=== PATIENT | female | born 1975 | race Caucasian/White ===

== ENCOUNTER 2016-10-28 21:47 | Emergency (ER) | payer MEDICAID ==
[2016-10-28] MEDS ORDERED: Albuterol/Ipratropium 3.0-0.5 MG/3 ML Neb Soln NEB ONE (22:03)
[2016-10-28] MEDS ORDERED: Sodium Chloride 0.9% 1,000 ML IV ONE (22:04)
[2016-10-28] MEDS ORDERED: guaiFENesin 600 MG Tab.ER PO ONE (22:05)
[2016-10-28] MEDS ORDERED: Ketorolac 30 MG/ML SDV IVPUSH ONE (22:05)
--- NOTE | 2016-10-28 22:16 | EDM.PDOC ---
ED HISTORY OF PRESENT ILLNESS - General Chief Complaint: Respiratory Problem Stated Complaint: CHEST PAIN/CONGESTION Time Seen by Provider: 10/28/16 22:00 Source of Information: Reports: Patient History Limitations: Reports: No limitations - History of Present Illness INITIAL COMMENTS - FREE TEXT/NARRATIVE: History of present illness: [40-year-old female comes in complaining of congestion, sore throat, fevers, and general aches and pains in her axilla and inguinal region.] Review of systems: As per history of present illness and below otherwise all systems reviewed and negative. Past medical history: As per history of present illness and as reviewed below otherwise noncontributory. Surgical history: As per history of present illness and as reviewed below otherwise noncontributory. Social history: No reported history of drug or alcohol abuse. Family history: As per history of present illness and as reviewed below otherwise noncontributory. Physical exam: HEENT: Atraumatic, normocephalic, pupils reactive, negative for conjunctival pallor or scleral icterus, mucous membranes moist with oral pharyngeal erythema with white patchy exudates tonsillar pillars noted to be cryptic and 3+, neck supple but with diffuse tenderness with mild clavicular lymphadenopathy noted, trachea midline. Lungs: Clear to auscultation but diminished throughout, chest nontender. Heart: S1S2, regular, negative for clicks, rubs, or JVD. Abdomen: Soft, nondistended, nontender. Negative for masses or hepatosplenomegaly. Negative for costovertebral tenderness. Pelvis: Stable nontender. Genitourinary: Deferred. Rectal: Deferred. Extremities: Atraumatic, negative for cords or calf pain. Neurovascular unremarkable. Neuro: Awake, alert, oriented. Cranial nerves II through XII unremarkable. Cerebellum unremarkable. Motor and sensory unremarkable throughout. Exam nonfocal. Diagnostics: [] Therapeutics: [IV fluid, Mucinex, Toradol] Impression: [Strep pharyngitis, viral] Plan: [] Definitive disposition and diagnosis as appropriate pending reevaluation and review of above. - Related Data Allergies/ADRs: Allergies Allergy/AdvReac Type Severity Reaction Status Date / Time sulfamethoxazole Allergy Hives Verified 10/28/16 21:56 [From Bactrim] trimethoprim [From Bactrim] Allergy Hives Verified 10/28/16 21:56 Home Meds: Home Meds ClonazePAM [KlonoPIN] 0.5 mg PO ASDIRECTED PRN 08/15/16 [History] Past Medical History - Past Health History Medical/Surgical History: Denies Medical/Surgical History Other HEENT History: wears contacts/glasses, has bottom partial Gastrointestinal History: Reports: Other (see below) Other Gastrointestinal History: occasional heartburn Genitourinary History: Reports: None [employer] IN[employer]CTOR History: Reports: Psychiatric History: Reports: Anxiety Endocrine/Metabolic History: Reports: Obesity/BMI 30+ - Infectious Disease History Infectious Disease History: Reports: Mumps - Past Surgical History Head Surgeries/Procedures: Reports: None HEENT Surgical History: Reports: Oral surgery Female Surgical History: Reports: section, Tubal ligation Social & Family History - Family History Family Medical History: Noncontributory - Tobacco Use Smoking Status *Q: Never Smoker - Recreational Drug Use Recreational Drug Use: No ED ROS GENERAL - Review of Systems Review Of Systems: See Below (See history of present illness) ED EXAM, GENERAL - Physical Exam Exam: See Below (See history of present illness) Course - Vital Signs Last Recorded V/S: Last Vital Signs Temp 36.9 C 10/28/16 21:53 Pulse 106 H 10/28/16 21:53 Resp 18 10/28/16 21:53 BP 145/86 H 10/28/16 21:53 Pulse Ox 96 10/28/16 21:53 - Orders/Labs/Meds Orders: Active Orders 24 hr Category Date Time Status RT Aerosol Therapy [RC] ASDIRECTED Care 10/28/16 22:04 Ordered Sodium Chloride 0.9% [Normal Saline] 1,000 ml Med 10/28/16 22:04 Ordered IV STAT Medication Orders Sodium Chloride (Normal Saline) 1,000 mls @ 999 mls/hr IV STAT ONE Stop: 10/28/16 23:04 Meds: Medications Generic Name Dose Route Start Last Admin Trade Name Freq PRN Reason Stop Dose Admin Sodium Chloride 1,000 mls @ 999 mls/hr 10/28/16 22:04 Normal Saline IV 10/28/16 23:04 STAT ONE Discontinued Medications Generic Name Dose Route Start Last Admin Trade Name Freq PRN Reason Stop Dose Admin Albuterol/Ipratropium 3 ml 10/28/16 22:03 Duoneb 3.0-0.5 Mg/3 Ml NEB 10/28/16 22:04 ONETIME ONE Guaifenesin 1,200 mg 10/28/16 22:05 Mucinex PO 10/28/16 22:06 ONETIME ONE Ketorolac Tromethamine 30 mg 10/28/16 22:05 Toradol IVPUSH 10/28/16 22:06 ONETIME ONE Departure - Departure Time of Disposition: 22:15 Disposition: Home, Self-Care 01 Condition: good Clinical Impression: Pharyngitis, Cough, Sinusitis Instructions: Upper Respiratory Infection, Adult, [id number] Forms: ED Department Discharge Additional Instructions: The following information is given to patients seen in the emergency department who are being discharged to home. This information is to outline your options for follow-up care. We provide all patients seen in our emergency department with a follow-up referral. The need for follow-up, as well as the timing and circumstances, are variable depending upon the specifics of your emergency department visit. If you don't have a primary care physician on staff, we will provide you with a referral. We always advise you to contact your personal physician following an emergency department visit to inform them of the circumstance of the visit and for follow-up with them and/or the need for any referrals to a consulting specialist. The emergency department will also refer you to a specialist when appropriate. This referral assures that you have the opportunity for follow-up care with a specialist. All of these measure are taken in an effort to provide you with optimal care, which includes your follow-up. Under all circumstances we always encourage you to contact your private physician who remains a resource for coordinating your care. When calling for follow-up care, please make the office aware that this follow-up is from your recent emergency room visit. If for any reason you are refused follow-up, please contact the [facility] Emergency Department at and asked to speak to the emergency department charge nurse. Take medication as directed Followup with primary care provider one to 2 days Return to ED as needed as discussed - My Orders Last 24 Hours: My Active Orders 10/28/16 22:04 RT Aerosol Therapy [RC] ASDIRECTED Sodium Chloride 0.9% [Normal Saline] 1,000 ml IV STAT - Assessment/Plan Last 24 Hours: My Active Orders 10/28/16 22:04 RT Aerosol Therapy [RC] ASDIRECTED Sodium Chloride 0.9% [Normal Saline] 1,000 ml IV STAT
[2016-10-29 03:09] VITALS: BP 128/82
== END 2016-10-28 23:21 | disposition home or self-care (01) ==
LOC: MW.ED 21:47
DX: J02.0 Streptococcal pharyngitis (principal); J32.9 Chronic sinusitis, unspecified; F41.9 Anxiety disorder, unspecified; E66.9 Obesity, unspecified; Z98.890 Other specified postprocedural states; Z98.51 Tubal ligation status; Z88.2 Allergy status to sulfonamides; Z88.1 Allergy status to other antibiotic agents
CPT/HCPCS: 99283; A9270

== ENCOUNTER 2017-02-04 06:22 | Day surgery (SDC) | payer MEDICAID ==
[2017-02-04] MEDS ORDERED: Lactated Ringers 1,000 ML IV SCH (06:30)
[2017-02-04 06:44] VITALS: BP 119/73
[2017-02-04] MEDS ORDERED: Propofol 200 MG/20 ML SDV ONE (07:22)
[2017-02-04] MEDS ORDERED: Ondansetron 4 MG/2 ML SDV ONE (07:22)
[2017-02-04] MEDS ORDERED: fentaNYL 100 MCG/2 ML SDV ONE (07:22)
[2017-02-04] MEDS ORDERED: Dexamethasone 4 MG/ML 5 ML MDV ONE (07:22)
[2017-02-04] MEDS ORDERED: Midazolam 1 MG/ML 2 ML SDV ONE (07:22)
[2017-02-04] MEDS ORDERED: Citric Acid/Sodium Citrate Solution 30 ML Cup PO ONE (07:36)
--- NOTE | 2017-02-04 07:39 | PCM.PREANE ---
Preanesthetic Assessment - Anesthesia/Transfusion/Family Hx Anesthesia History: Prior Anesthesia Without Reaction Family History of Anesthesia Reaction: No Transfusion History: No Prior Transfusion(s) - Review of Systems General: No Symptoms Pulmonary: No Symptoms Cardiovascular: No Symptoms Gastrointestinal: Other (heartburn) Neurological: No Symptoms Other: Reports: None - Physical Assessment NPO Status Date: 02/03/17 NPO Status Time: 23:30 O2 Sat by Pulse Oximetry: 98 Respiratory Rate: 16 Vital Signs: Last Vital Signs Temp 36.6 C 02/04/17 06:42 Pulse 88 02/04/17 06:42 Resp 16 02/04/17 06:42 BP 119/73 02/04/17 06:42 Pulse Ox 98 02/04/17 06:42 Height: 1.52 m Weight: 99.337 kg ASA Class: 2 Airway Class: Mallampati = 2 Dentition: Reports: Partial ROM/Head Extension: Full Lungs: Clear to Auscultation, Normal Respiratory Effort Cardiovascular: Regular Rate, Regular Rhythm - Lab Values: Laboratory Last Values WBC 5.03 K/uL (4.0-11.0) 02/03/17 09:34 RBC 4.91 M/uL (4.30-5.90) 02/03/17 09:34 Hgb 11.4 g/dL (12.0-16.0) L 02/03/17 09:34 Hct 36.3 % (36.0-46.0) 02/03/17 09:34 MCV 73.9 fL (80.0-98.0) L 02/03/17 09:34 MCH 23.2 pg (27.0-32.0) L 02/03/17 09:34 MCHC 31.4 g/dL (31.0-37.0) 02/03/17 09:34 RDW Std Deviation 42.2 fl (28.0-62.0) 02/03/17 09:34 RDW Coeff of Rinku 16 % (11.0-15.0) H 02/03/17 09:34 Plt Count 305 K/uL (150-400) 02/03/17 09:34 MPV 9.80 fL (7.40-12.00) 02/03/17 09:34 Nucleated RBC % 0.0 /100WBC 02/03/17 09:34 Nucleated RBCs # 0 K/uL 02/03/17 09:34 HCG, Qual NEGATIVE (NEG) 02/03/17 09:34 - Allergies Allergies/Adverse Reactions: Allergies Allergy/AdvReac Type Severity Reaction Status Date / Time sulfamethoxazole Allergy Hives Verified 10/28/16 21:56 [From Bactrim] trimethoprim [From Bactrim] Allergy Hives Verified 10/28/16 21:56 - Anesthesia Plan Pre-Op Medication Ordered: Antacids, Other (bicitra and pepcid) - Acknowledgements Anesthesia Type Planned: MAC Pt an Appropriate Candidate for the Planned Anesthesia: Yes Alternatives and Risks of Anesthesia Discussed w Pt/Guardian: Yes Pt/Guardian Understands and Agrees with Anesthesia Plan: Yes PreAnesthesia Questionnaire - Past Health History Medical/Surgical History: Denies Medical/Surgical History HEENT History: Reports: Other (See Below) Other HEENT History: wears contacts/glasses, has bottom partial Gastrointestinal History: Genitourinary History: Reports: None [employer]AT History: Reports: Psychiatric History: Reports: Anxiety Endocrine/Metabolic History: Reports: Obesity/BMI 30+ - Infectious Disease History Infectious Disease History: Reports: Mumps - Past Surgical History Head Surgeries/Procedures: Reports: None HEENT Surgical History: Reports: Oral Surgery Female Surgical History: Reports: Section, Cervical Cryotherapy, Tubal Ligation - SUBSTANCE USE Smoking Status *Q: Never Smoker Tobacco Use Within Last Twelve Months: Cigarettes Recreational Drug Use History: No - HOME MEDS Home Medications: Home Meds ClonazePAM [KlonoPIN] 0.5 tab PO ASDIRECTED PRN 08/15/16 [History] Clindamycin Phos/Benzoyl Perox [Clindamycin-Benzoyl Perox 1-5%] 1 applic TOP BID 01/16/17 [History] - CURRENT (IN HOUSE) MEDS Current Meds: Current Medications Citric Acid/Sodium Citrate (Bicitra Solution) 30 ml PO ONETIME ONE Stop: 02/04/17 07:37 Lactated Ringer's (Ringers, Lactated) 1,000 mls @ 125 mls/hr IV ASDIRECTED NICHO Last Admin: 02/04/17 06:45 Dose: 125 mls/hr Discontinued Medications Dexamethasone (Dexamethasone) Confirm Administered Dose 20 mg .ROUTE .STK-MED ONE Stop: 02/04/17 07:23 Fentanyl (Sublimaze) Confirm Administered Dose 100 mcg .ROUTE .STK-MED ONE Stop: 02/04/17 07:23 Lidocaine HCl (Xylocaine-Mpf 1%) Confirm Administered Dose 5 ml .ROUTE .STK-MED ONE Stop: 02/04/17 07:23 Midazolam HCl (Versed 1 Mg/Ml) Confirm Administered Dose 2 mg .ROUTE .STK-MED ONE Stop: 02/04/17 07:23 Ondansetron HCl (Zofran) Confirm Administered Dose 4 mg .ROUTE .STK-MED ONE Stop: 02/04/17 07:23 Propofol (Diprivan 20 Ml) Confirm Administered Dose 200 mg .ROUTE .STK-MED ONE Stop: 02/04/17 07:23
[2017-02-04] MEDS ORDERED: Citric Acid/Sodium Citrate Solution 30 ML Cup ONE (07:44)
[2017-02-04] MEDS ORDERED: Famotidine 20 MG/2 ML SDV IVPUSH SCH (09:00)
--- NOTE | 2017-02-04 09:13 | PCM.SN ---
- Free Text/Narrative Note: In to start IV line on patient for surgery to follow. Patient difficult IV access having had multiple attempts already. Ultrasound used and attempt failed. Pt has good sites but refused any further attempts and wishes to not have IV placed following 1 ultrasound attempt.
== END 2017-02-04 08:40 ==
LOC: MW.SDS 06:22
PROVIDERS: ATTEND Obstetrics & Gynecology
DX: Z53.8 Procedure and treatment not carried out for other reasons (principal)
CPT/HCPCS: 84703; 85027; J7120; J1100; J2250; J2405; J2704; J3010

== ENCOUNTER 2017-02-26 06:44 | Day surgery (SDC) | payer MEDICAID ==
[~2017-02-26 06:44] MED LIST: Lactated Ringers 1,000 ML IV SCH; Sodium Chloride 0.9% 10 ML Syringe FLUSH PRN; Sodium Chloride 0.9% 2.5 ML Syringe FLUSH PRN
[2017-02-26] MEDS ORDERED: Dexamethasone 4 MG/ML 5 ML MDV ONE (06:54)
[2017-02-26] MEDS ORDERED: Midazolam 1 MG/ML 2 ML SDV ONE (06:54)
[2017-02-26] MEDS ORDERED: Propofol 200 MG/20 ML SDV ONE (06:54)
[2017-02-26] MEDS ORDERED: fentaNYL 100 MCG/2 ML SDV ONE (06:54)
[2017-02-26] MEDS ORDERED: Ondansetron 4 MG/2 ML SDV ONE (06:54)
--- NOTE | 2017-02-26 07:25 | PCM.PREANE ---
Preanesthetic Assessment - Anesthesia/Transfusion/Family Hx Anesthesia History: Prior Anesthesia Without Reaction Family History of Anesthesia Reaction: No Transfusion History: No Prior Transfusion(s) Intubation History: Unknown - Review of Systems General: No Symptoms Pulmonary: No Symptoms Cardiovascular: No Symptoms Gastrointestinal: No Symptoms Neurological: No Symptoms Other: Reports: None - Physical Assessment O2 Sat by Pulse Oximetry: 99 Respiratory Rate: 16 Vital Signs: Last Vital Signs Temp 36.3 C 02/26/17 07:12 Pulse 78 02/26/17 07:12 Resp 16 02/26/17 07:12 BP 121/71 02/26/17 07:12 Pulse Ox 99 02/26/17 07:12 Height: 1.52 m Weight: 95.708 kg ASA Class: 2 Mental Status: Alert & Oriented x3 Airway Class: Mallampati = 2 Dentition: Reports: Normal Dentition Thyro-Mental Finger Breadths: 3 Mouth Opening Finger Breadths: 3 ROM/Head Extension: Full Lungs: Clear to Auscultation, Normal Respiratory Effort Cardiovascular: Regular Rate, Regular Rhythm - Lab Values: Laboratory Last Values WBC 5.22 K/uL (4.0-11.0) 02/26/17 07:06 RBC 4.61 M/uL (4.30-5.90) 02/26/17 07:06 Hgb 10.6 g/dL (12.0-16.0) L 02/26/17 07:06 Hct 33.9 % (36.0-46.0) L 02/26/17 07:06 MCV 73.5 fL (80.0-98.0) L 02/26/17 07:06 MCH 23.0 pg (27.0-32.0) L 02/26/17 07:06 MCHC 31.3 g/dL (31.0-37.0) 02/26/17 07:06 RDW Std Deviation 42.3 fl (28.0-62.0) 02/26/17 07:06 RDW Coeff of Rinku 16 % (11.0-15.0) H 02/26/17 07:06 Plt Count 300 K/uL (150-400) 02/26/17 07:06 MPV 10.00 fL (7.40-12.00) 02/26/17 07:06 - Allergies Allergies/Adverse Reactions: Allergies Allergy/AdvReac Type Severity Reaction Status Date / Time sulfamethoxazole Allergy Hives Verified 10/28/16 21:56 [From Bactrim] trimethoprim [From Bactrim] Allergy Hives Verified 10/28/16 21:56 - Blood Blood Available: No - Anesthesia Plan Pre-Op Medication Ordered: None - Acknowledgements Anesthesia Type Planned: General Anesthesia Pt an Appropriate Candidate for the Planned Anesthesia: Yes Alternatives and Risks of Anesthesia Discussed w Pt/Guardian: Yes Pt/Guardian Understands and Agrees with Anesthesia Plan: Yes PreAnesthesia Questionnaire - Past Health History Medical/Surgical History: Denies Medical/Surgical History HEENT History: Reports: Other (See Below) Other HEENT History: wears contacts/glasses, has bottom partial Gastrointestinal History: Reports: Other (See Below) (heartburns) Genitourinary History: Reports: None [employer]IM ARCHITECT History: Reports: Dysfunctional Uterine Bleeding, Endometriosis, Psychiatric History: Reports: Anxiety, Panic Attack Endocrine/Metabolic History: Reports: Obesity/BMI 30+ (BMI 41) - Infectious Disease History Infectious Disease History: Reports: Mumps - Past Surgical History Head Surgeries/Procedures: Reports: None HEENT Surgical History: Reports: Oral Surgery Female Surgical History: Reports: Section (x2), Cervical Cryotherapy , Tubal Ligation - SUBSTANCE USE Smoking Status *Q: Never Smoker Tobacco Use Within Last Twelve Months: Cigarettes Recreational Drug Use History: No - HOME MEDS Home Medications: Home Meds ClonazePAM [KlonoPIN] 0.5 tab PO ASDIRECTED PRN 08/15/16 [History] - CURRENT (IN HOUSE) MEDS Current Meds: Current Medications Lactated Ringer's (Ringers, Lactated) 1,000 mls @ 125 mls/hr IV ASDIRECTED NICHO Sodium Chloride (Saline Flush) 10 ml FLUSH ASDIRECTED PRN PRN Reason: Keep Vein Open Sodium Chloride (Saline Flush) 2.5 ml FLUSH ASDIRECTED PRN PRN Reason: Keep Vein Open Discontinued Medications Dexamethasone (Dexamethasone) Confirm Administered Dose 20 mg .ROUTE .STK-MED ONE Stop: 02/26/17 06:55 Fentanyl (Sublimaze) Confirm Administered Dose 100 mcg .ROUTE .STK-MED ONE Stop: 02/26/17 06:55 Lidocaine HCl (Xylocaine-Mpf 1%) Confirm Administered Dose 5 ml .ROUTE .STK-MED ONE Stop: 02/26/17 06:55 Midazolam HCl (Versed 1 Mg/Ml) Confirm Administered Dose 2 mg .ROUTE .STK-MED ONE Stop: 02/26/17 06:55 Ondansetron HCl (Zofran) Confirm Administered Dose 4 mg .ROUTE .STK-MED ONE Stop: 02/26/17 06:55 Propofol (Diprivan 20 Ml) Confirm Administered Dose 200 mg .ROUTE .STK-MED ONE Stop: 02/26/17 06:55
[2017-02-26] MEDS ORDERED: fentaNYL 100 MCG/2 ML SDV IVPUSH PRN (08:14)
[2017-02-26] MEDS ORDERED: ePHEDrine 50 MG/ML SDV ONE (08:31)
[2017-02-26] MEDS ORDERED: Ketorolac 30 MG/ML SDV ONE (08:50)
--- NOTE | 2017-02-26 10:02 | PCM.OPNOTE ---
- General Post-Op/Procedure Note Date of Surgery/Procedure: 02/26/17 Operative Procedure(s): Hysteroscopy, polypectomy and Dilation with curettage Findings: Bulky 10 weeks size uterus, polyploid endometrium with a broad based posterior wall polyp. Pre Op Diagnosis: Menorrhagia Post-Op Diagnosis: Same Anesthesia Technique: General ET Tube Primary Surgeon: Torrie Shaw Pathology: Polyp, endometrial curetting EBL in mLs: 20 Complications: None Condition: Good Free Text/Narrative:: Intake & Output 02/25/17 02/26/17 02/26/17 22:59 06:59 14:59 Intake Total 900 Balance 900
[2017-02-26 10:36] VITALS: BP 128/70
--- NOTE | 2017-02-27 07:46 | OR ---
SURGEON: Torrie Shaw MD CLERK: Jean Claude Neal MS-4 DATE OF PROCEDURE: 02/26/2017 PREOPERATIVE DIAGNOSES: 1. Menorrhagia. 2. Endometrial polyp. POSTOPERATIVE DIAGNOSES: 1. Menorrhagia. 2. Endometrial polyp. PROCEDURES PERFORMED: Hysteroscopy, polypectomy with dilatation and curettage. ANESTHESIA: General endotracheal. ESTIMATED BLOOD LOSS: Minimal. FINDINGS: Bulky anteverted uterus approximately 10-week size, sounded to 11 cm. No cervical lesions seen or adnexal masses palpable. Hysteroscopic findings revealed a broad based, solitary, posterior wall endometrial polyp. The endometrial lining was polypoid in appearance. Both fallopian tube ostia were visualized. COMPLICATIONS: None. DISPOSITION: Stable to recovery room. BRIEF HISTORY: The patient is a 41-year-old, para 9, who presented with a history of prolonged periods with regular cycles. Pelvic sonogram showed heterogeneous endometrium with an area suggestive of a polyp at the fundus. After extensive discussion with the patient on various management options, she opted to go ahead with hysteroscopy with removal of the polyp. Surgical risks were discussed to include, but not limited to bleeding, infection, uterine perforation, injury to the surrounding organs. Appropriate consent was obtained. DESCRIPTION OF PROCEDURE: The patient was taken to the operating room, where general anesthesia induction was performed without difficulty. After adequate level of anesthesia, she was placed in dorsal lithotomy position, prepped and draped in the usual sterile fashion for vaginal surgery. Time out held. The bladder was emptied. Examination under anesthesia revealed the aforementioned findings. A bivalve speculum was placed into the vagina and the anterior lip of the cervix was grabbed with an Allis clamp. The uterine cavity was then sounded to a depth of 11 cm. A 6.2 mm MyoSure/operative hysteroscope was inserted into the uterine cavity under direct visualization using normal saline as a distention media. Upon entering the uterine cavity, a solitary, broad-based, posterior wall endometrial polyp was noted. The MyoSure hysteroscopic tissue retrieval device was then inserted, and this was used to remove the polyp completely. The hysteroscope was removed, followed by sharp curettage of the endometrial cavity,retrieving moderate amount of endometrium. The hysteroscope was once again reinserted under direct visualization. The polyp was noted to have been removed, all the thomas curetted, and with no other abnormality noted, the procedure was completed and the hysteroscope withdrawn. The Allis clamp was removed. Pressure was applied to the area with good hemostasis noted. All sponge and instrument counts were correct. Input and output of normal saline were calculated by the Cantimer fluid management system, and the deficit was documented on the nurse's chart. Please refer to it for accurate amounts. The patient was taken to the recovery room in a stable condition. JACKY / RAE /[id number] MTDD
== END 2017-02-26 10:30 | disposition home or self-care (01) ==
LOC: MW.SDS 06:44
PROVIDERS: ATTEND Obstetrics & Gynecology
DX: N84.0 Polyp of corpus uteri (principal); Z88.1 Allergy status to other antibiotic agents; Z88.2 Allergy status to sulfonamides; F41.9 Anxiety disorder, unspecified; Z79.899 Other long term (current) drug therapy; Z98.51 Tubal ligation status; Z98.890 Other specified postprocedural states
CPT/HCPCS: 36415; 58558; 84703; 85027; 88305; J1100; J1885; J2250; J2405; J3010; J7120; 00952; J2704

== ENCOUNTER 2017-04-30 08:25 | Emergency (ER) | payer MEDICAID ==
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
[2017-04-30 09:21] LABS: CHLORIDE,CL 109 mmol/L (98-110); SODIUM,NA 140 mmol/L (136-146)
--- NOTE | 2017-04-30 09:23 | US ---
EXAMINATION: Right upper quadrant ultrasound HISTORY: Pain COMPARISON: None TECHNIQUE: Grayscale and color Doppler images obtained of the right upper quadrant. FINDINGS: Pancreas is not optimally characterize. The liver is normal in contour and echogenicity wit hout a focal hepatic mass. The gallbladder wall thickness is mildly prominent at 4 mm. No pericholecy stic fluid or shadowing gallstones. Common bile duct measures 2 mm. The right kidney measures 10.3 cm [id number] without evidence of hydronephrosis. The sonographic Reynolds sign is not reported. IMPRESSION: 1. Mild gallbladder wall thickening otherwise unremarkable right upper quadrant ultrasound.
[2017-04-30 10:00] VITALS: BP 111/62
== END 2017-04-30 09:55 | disposition home or self-care (01) ==
LOC: MW.ED 08:25
DX: R10.11 Right upper quadrant pain (principal); F41.0 Panic disorder [episodic paroxysmal anxiety]; Z88.1 Allergy status to other antibiotic agents; Z88.2 Allergy status to sulfonamides
CPT/HCPCS: 36415; 76705; 76705-26; 80053; 81001; 84703; 85025; 99283; 99284-25

== ENCOUNTER 2018-12-24 18:54 | Emergency (ER) | payer MEDICAID ==
--- NOTE | 2018-12-24 19:20 | EDM.PDOC ---
ED HPI GENERAL MEDICAL PROBLEM - General Chief Complaint: Skin Complaint Stated Complaint: PT HAS LUMP ON RT SIDE OF BODY Time Seen by Provider: 12/24/18 19:17 Source of Information: Reports: Patient History Limitations: Reports: No Limitations - History of Present Illness INITIAL COMMENTS - FREE TEXT/NARRATIVE: HISTORY AND PHYSICAL: History of present illness: Patient is a 43-year-old female here with complaint of a lump under her breast. She states she noticed it 2 days ago after her bra had been rubbing in the area. She states it is very tender to touch. She has felt like she's had low grade fevers. Denies nipple discharge. Denies diabetes or significant past medical history. Review of systems: As per history of present illness and below otherwise all systems reviewed and negative. Past medical history: As per history of present illness and as reviewed below otherwise noncontributory. Surgical history: As per history of present illness and as reviewed below otherwise noncontributory. Social history: No reported history of drug or alcohol abuse. Family history: As per history of present illness and as reviewed below otherwise noncontributory. Physical exam: General: Patient sitting comfortably in no acute distress and nontoxic appearing HEENT: Atraumatic, normocephalic, pupils reactive, negative for conjunctival pallor or scleral icterus, mucous membranes moist, throat clear, neck supple, nontender, trachea midline. No meningeal signs. Lungs: Clear to auscultation, breath sounds equal bilaterally, chest nontender. Breasts: There is a a 4x2cm area of erythema and induration just below the right breast within the intertriginous area. Heart: S1S2, regular, negative for clicks, rubs, or overt murmur. Abdomen: Soft, nondistended, nontender. Negative for masses or hepatosplenomegaly. Negative for costovertebral tenderness. No rigidity, rebound , guarding. Pelvis: Stable nontender. Genitourinary: Deferred. Rectal: Deferred. Extremities: Atraumatic, negative for cords or calf pain. Neurovascular unremarkable. Neuro: Awake, alert, oriented. Cranial nerves II through XII unremarkable. Cerebellum unremarkable. Motor and sensory unremarkable throughout. Exam nonfocal. Notes: Diagnostics: CBC, CMP Therapeutics: None Prescriptions: Keflex Impression: Cellulitis Plan: 1. Take antibiotic as instructed 2. Follow up with primary care provider 3. Return to ED as needed as discussed Definitive disposition and diagnosis as appropriate pending reevaluation and review of above. Right Breast Pain Score (Numeric/FACES): 9 - Related Data Allergies Allergy/AdvReac Type Severity Reaction Status Date / Time sulfamethoxazole Allergy Hives Verified 12/24/18 19:06 [From Bactrim] trimethoprim [From Bactrim] Allergy Hives Verified 12/24/18 19:06 Home Meds: Home Meds cephALEXin [Keflex] 500 mg PO Q8H #15 cap 12/24/18 [Rx] Past Medical History - Past Health History Medical/Surgical History: Denies Medical/Surgical History HEENT History: Reports: Other (See Below) Other HEENT History: wears contacts/glasses, has bottom partial Cardiovascular History: Reports: None Respiratory History: Reports: None Gastrointestinal History: Reports: None Genitourinary History: Reports: None GLOBAL LEAD History: Reports: Dysfunctional Uterine Bleeding, Musculoskeletal History: Reports: None Neurological History: Reports: None Psychiatric History: Reports: Anxiety, Panic Attack Endocrine/Metabolic History: Reports: Obesity/BMI 30+ Hematologic History: Reports: None Immunologic History: Reports: None Oncologic (Cancer) History: Reports: None Dermatologic History: Reports: None - Infectious Disease History Infectious Disease History: Reports: None - Past Surgical History Head Surgeries/Procedures: Reports: None HEENT Surgical History: Reports: Oral Surgery GI Surgical History: Reports: None Female Surgical History: Reports: Section, Cervical Cryotherapy Social & Family History - Family History Family Medical History: Noncontributory - Tobacco Use Smoking Status *Q: Never Smoker Second Hand Smoke Exposure: No - Caffeine Use Caffeine Use: Reports: Coffee - Recreational Drug Use Recreational Drug Use: No ED ROS GENERAL - Review of Systems Review Of Systems: ROS reveals no pertinent complaints other than HPI. ED EXAM, SKIN/RASH Exam: See Below (see dictation) Course - Vital Signs Last Recorded V/S: Last Vital Signs Temp 97.5 F 12/24/18 19:06 Pulse 96 12/24/18 19:06 Resp 16 12/24/18 19:06 BP 136/77 12/24/18 19:06 Pulse Ox 96 12/24/18 19:06 - Orders/Labs/Meds Orders: Active Orders 24 hr Category Date Time Status COMPREHENSIVE METABOLIC PN,CMP [CHEM] Stat Lab 12/24/18 19:35 Received Labs: Laboratory Tests 12/24/18 Range/Units 19:35 WBC 5.63 (4.0-11.0) K/uL RBC 4.42 (4.30-5.90) M/uL Hgb 10.6 L (12.0-16.0) g/dL Hct 34.4 L (36.0-46.0) % MCV 77.8 L (80.0-98.0) fL MCH 24.0 L (27.0-32.0) pg MCHC 30.8 L (31.0-37.0) g/dL RDW Std Deviation 43.5 (28.0-62.0) fl RDW Coeff of Rinku 15 (11.0-15.0) % Plt Count 320 (150-400) K/uL MPV 9.50 (7.40-12.00) fL Neut % (Auto) 59.1 (48.0-80.0) % Lymph % (Auto) 29.8 (16.0-40.0) % [place] % (Auto) 8.9 (0.0-15.0) % Eos % (Auto) 2.0 (0.0-7.0) % Baso % (Auto) 0.2 (0.0-1.5) % Neut # (Auto) 3.3 (1.4-5.7) K/uL Lymph # (Auto) 1.7 (0.6-2.4) K/uL [place] # (Auto) 0.5 (0.0-0.8) K/uL Eos # (Auto) 0.1 (0.0-0.7) K/uL Baso # (Auto) 0.0 (0.0-0.1) K/uL Nucleated RBC % 0.0 /100WBC Nucleated RBCs # 0 K/uL Departure - Departure Time of Disposition: 19:59 Disposition: Home, Self-Care 01 Condition: Good Clinical Impression: Cellulitis - Discharge Information Prescriptions: cephALEXin [Keflex] 500 mg PO Q8H #15 cap Referrals: Samanta Neal MD [Primary Care Provider] - Forms: ED Department Discharge Additional Instructions: The following information is given to patients seen in the emergency department who are being discharged to home. This information is to outline your options for follow-up care. We provide all patients seen in our emergency department with a follow-up referral. The need for follow-up, as well as the timing and circumstances, are variable depending upon the specifics of your emergency department visit. If you don't have a primary care physician on staff, we will provide you with a referral. We always advise you to contact your personal physician following an emergency department visit to inform them of the circumstance of the visit and for follow-up with them and/or the need for any referrals to a consulting specialist. The emergency department will also refer you to a specialist when appropriate. This referral assures that you have the opportunity for follow-up care with a specialist. All of these measure are taken in an effort to provide you with optimal care, which includes your follow-up. Under all circumstances we always encourage you to contact your private physician who remains a resource for coordinating your care. When calling for follow-up care, please make the office aware that this follow-up is from your recent emergency room visit. If for any reason you are refused follow-up, please contact the Emergency Department at and asked to speak to the emergency department charge nurse. Primary Care [address] [place] [id number] [facility] [address] [place] [id number] 1. Take antibiotic as instructed 2. Follow up with primary care provider 3. Return to ED as needed as discussed - My Orders Last 24 Hours: My Active Orders 12/24/18 19:35 COMPREHENSIVE METABOLIC PN,CMP [CHEM] Stat - Assessment/Plan Last 24 Hours: My Active Orders 12/24/18 19:35 COMPREHENSIVE METABOLIC PN,CMP [CHEM] Stat
[2018-12-24 20:03] LABS: CHLORIDE,CL 104 mmol/L (98-107); SODIUM,NA 138 mmol/L (136-145)
[2018-12-24 20:14] VITALS: BP 113/64
== END 2018-12-24 20:10 | disposition home or self-care (01) ==
LOC: MW.ED 18:54
DX: L03.313 Cellulitis of chest wall (principal); Z88.2 Allergy status to sulfonamides; Z88.1 Allergy status to other antibiotic agents
CPT/HCPCS: 36415; 80053; 85025; 99283